=== PATIENT | female | born 1960 | race American Indian/Alaskan Native ===

== ENCOUNTER 2016-11-02 10:54 | Emergency (ER) | payer SELFPAY ==
[2016-11-02 11:15] VITALS: BP 153/94
--- NOTE | 2016-11-02 11:26 | Emergency Department Report ---
Chief Complaint: Chest Pain Stated Complaint: CHEST PAIN Time Seen by Provider: 11/02/16 11:24 - HPI History of Present Illness: 56 y/o female complain of chest pain with dizziness x 1 day .pt complain of nausea x 1 day .pt denies any prior medication . - ROS Review of Systems: per HPI - Exam Vital Signs: Vital Signs 11/02/16 11:11 Temperature 98.5 F Pulse Rate 73 Respiratory 18 Rate Blood Pressure 153/94 O2 Sat by Pulse 99 Oximetry Physical Exam: GENERAL: The patient is well-developed and well-nourished. Patient is in NAD. HENT: Normocephalic. Atraumatic. Patient has moist mucous membranes. Throat: No erythema, swelling or exudates. EYES: Extraocular motions are intact, PERRL NECK: Supple. No meningitic signs are noted. There is no adenopathy noted. CHEST/LUNGS: Clear to auscultation bilaterally. No wheezing, rales or rhonchi noted. There is no respiratory distress noted. HEART/CARDIOVASCULAR: Regular rate and rhythm. Normal S1 S2. No murmurs, rubs , clicks, or gallops. ABDOMEN: Abdomen is soft, nontender.. Bowel sounds normoactive. There is no abdominal distention. Negative rebound tenderness. : Deferred. SKIN: There is no rash. There is no edema. There is no diaphoresis. NEURO: The patient is A&Ox3. The patient has no focal neurologic deficits. MUSCULOSKELETAL: There is no tenderness or deformity. There is no limitation range of motion. PSYCH: Pt has appropriate mood and affect. MSE screening note: Focused history and physical exam performed. Due to findings the following was ordered: ED Disposition for MSE Condition: Stable
--- NOTE | 2016-11-03 02:40 | Admit Criteria Form ---
Admission Criteria Documentation: CHEST PAIN: OBSERVATION CARE USE THIS FORM ONLY WHEN INPATIENT ADMISSION CRITERIA ARE NOT MET. (Place X for any and all applicable criteria): Placement for observation care may be appropriate for a patient with chest pain and ANY ONE of the following (1)(2)(3)(4)(5): []I. Suspected cardiac ischemia with nondiagnostic initial evaluation (eg, ECG, cardiac biomarkers) requiring further immediate evaluation such as stress testing and repeat laboratory testing to clarify diagnosis []II. Other suspected diagnosis requiring observation and monitoring during diagnostic evaluation (eg, pulmonary embolus, aortic dissection, pneumothorax, pericarditis, GI bleeding) (6)(7)(8)(9) [X]III. Other observation care needs (Use General Criteria: Observation Care) The original [employer] content created by [employer] has been revised. The portions of the content which have been revised are identified through the use of italic text, and [facility] has neither reviewed nor approved the modified material. All other unmodified content is copyright [facility] [employer]. Please see references footnoted in the original [facility] [employer] edition 2015 Admission Criteria Met: Pending
--- NOTE | 2016-11-03 14:05 | ED Elopement Review ---
ED Pt Elopement review - Call Back decision Pt Call Back Decision: Call pt to return to ED ROSA (chest pain should be further evaluated)
== END 2016-11-02 12:18 | disposition left against medical advice (07) ==
LOC: ED 10:54
DX: R07.9 Chest pain, unspecified (principal); R42 Dizziness and giddiness; R11.0 Nausea; Z53.21 Procedure and treatment not carried out due to patient leaving prior to being seen by health care provider
CPT/HCPCS: 93005; 93010